=== PATIENT | male | born 1945 | race Caucasian/White ===

== ENCOUNTER 2017-03-24 15:30 | Inpatient (IN) | payer MEDICARE, OTHER ==
[~2017-03-24] VITALS: Ht 175.3 cm; Wt 113.5 kg
[~2017-03-24 15:30] MED LIST: ASPIRIN 81M81 MG/TA2 PO; LIPITOR20 MG PO; LOPRESSOR 225 MG/TAB PO; PLAVIX 75MG TAB75 MG PO; PROSVENT PO; SAW PALMETTO 101 SGL PO; ZESTRIL 20MG TA20 MG PO
[2017-03-24 15:50] VITALS: BP 142/78; PULSE 59; TEMP 98.2
[2017-03-24 17:14] VITALS: BP 142/77; PULSE 59; TEMP 98.2
[2017-03-24 18:07] VITALS: BP 142/78; PULSE 60; TEMP 98.2
[2017-03-25 06:05] VITALS: BP 154/76; PULSE 56; TEMP 97.5
[2017-03-25 18:44] VITALS: BP 134/95; PULSE 66; TEMP 97.7
[2017-03-26 03:50] VITALS: BP 165/93; PULSE 72; TEMP 98.7
[2017-03-26 18:20] VITALS: BP 144/71; PULSE 64; TEMP 98.2
[2017-03-27 06:00] VITALS: BP 153/76; PULSE 55; TEMP 97.7
[2017-03-27 15:53] VITALS: BP 150/76; PULSE 66; TEMP 97
[2017-03-28 05:29] VITALS: BP 148/83; PULSE 57; TEMP 98.1
[2017-03-28 18:17] VITALS: BP 137/71; PULSE 65; TEMP 97.7
[2017-03-29 05:13] VITALS: BP 145/86; PULSE 56; TEMP 97.3
[2017-03-29 16:58] VITALS: BP 142/70; PULSE 55; TEMP 97.1
[2017-03-30 04:15] VITALS: BP 150/84; PULSE 51; TEMP 97.7
[2017-03-30 16:51] VITALS: BP 148/78; PULSE 58; TEMP 97.9
[2017-03-30 20:30] VITALS: BP 134/96; PULSE 67; TEMP 97.7
[2017-03-31 04:39] VITALS: BP 138/83; PULSE 55; TEMP 97.2
[2017-03-31 16:25] VITALS: BP 139/75; PULSE 69; TEMP 97.9
[2017-04-01 05:57] VITALS: BP 125/81; PULSE 57; TEMP 98.5
== END 2017-04-01 14:40 | disposition home or self-care (01) | DRG 57 ==
DX: I69.393 Ataxia following cerebral infarction (principal); I10 Essential (primary) hypertension
CPT/HCPCS: 99222-AI; 99232-AI; 99239; J1650